=== PATIENT | female | born 1985 | race Two or more races ===

== ENCOUNTER 2017-08-30 01:08 | Emergency (ER) | payer OTHER ==
[2017-08-30] MEDS ORDERED: IPRATROPIUM/ALBUTEROL 3 ML NEB INH STA (01:37)
--- NOTE | 2017-08-30 02:53 | ED Physician Documentation ---
History of Present Illness - Stated complaint Stated Complaint: FACE,CHEST TINGLY - Chief complaint Chief Complaint: Resp - History obtained from History obtained from: Patient - History of Present Illness Timing: How many weeks ago Improved by: nothing Worsened by: coughing - Additonal information Additional information: c/o nausea, headache, cough x 1 week, bilateral ear pain, sore throat, Tmax 104 every day x 1 week Review of Systems Constitutional: reports: Fever, Chills, Myalgias, Fatigue, Sweats Ears: reports: Ear pain Throat: reports: Sore throat Cardiac: reports: Reviewed and negative Respiratory: reports: Dyspnea, Cough GI: reports: Nausea. 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 - Present Medications Home Medications: Ambulatory Orders Medication Instructions Recorded Confirmed Albuterol Sulf [Ventolin Hfa 1 - 2 puffs INH Q4H PRN 08/30/17 08/30/17 Inhaler] Albuterol Sulfate [Proventil Hfa 1 - 2 puffs INH Q4H PRN #1 inhaler 08/30/17 Inhaler] guaiFENesin/CODEINE [Robitussin AC] 5 - 10 ml PO Q6H PRN #100 udc 08/30/17 predniSONE [Deltasone] 40 mg PO DAILY 4 Days tablet 08/30/17 - Allergies Allergies/Adverse Reactions: Allergies Allergy/AdvReac Type Severity Reaction Status Date / Time nut - unspecified Allergy Nausea Verified 08/30/17 01:19 - Social History Does the pt smoke?: Yes Smoking Status: Current some day smoker Does the pt drink ETOH?: Yes ETOH Use: Wine, Beer, Liquor Does the pt have substance abuse?: No - Immunizations Immunizations are current?: Yes PD ED PE NORMAL - Vitals Vital signs reviewed: Yes - General General: Alert and oriented X 3, No acute distress, Well developed/nourished - Neck Neck: Supple, no meningeal sign - Cardiac Cardiac: RRR, No murmur, No gallop, No rub - Respiratory Respiratory: No respiratory distress - Abdomen Abdomen: Soft, Non tender - Back Back: No CVA TTP PD ED PE EXPANDED - Respiratory Respiratory: Wheezing (course, scattered, end-expiratory wheezing) Results - Vitals Vitals: Oxygen O2 Source Room air PD MEDICAL DECISION MAKING - ED course Complexity details: reviewed results, re-evaluated patient, considered differential, d/w patient Departure - Departure Disposition: 01 Home, Self Care Clinical Impression: Bronchitis with bronchospasm Condition: Good Instructions: ED Bronchitis Asthmatic Prescriptions: Albuterol Sulfate [Proventil Hfa Inhaler] 1 - 2 puffs INH Q4H PRN #1 inhaler PRN Reason: Shortness Of Air/Wheezing guaiFENesin/CODEINE [Robitussin AC] 5 - 10 ml PO Q6H PRN #100 udc PRN Reason: Cough predniSONE [Deltasone] 40 mg PO DAILY 4 Days tablet Discharge Date/Time: 08/30/17 03:25
[2017-08-30 03:13] VITALS: BP 123/85
[2017-08-30] MEDS ORDERED: guaiFENesin/CODEINE 5 ML UDC PO STA (03:14)
[2017-08-30] MEDS ORDERED: predniSONE 20 MG TABLET PO STA (03:14)
== END 2017-08-30 03:25 | disposition home or self-care (01) ==
LOC: ED 01:08
DX: J40 Bronchitis, not specified as acute or chronic (principal); F17.200 Nicotine dependence, unspecified, uncomplicated
CPT/HCPCS: 94640; 99283; A9270; J7512; J7620

== ENCOUNTER 2018-10-05 21:06 | Outpatient (CLI) | payer OTHER | END 2018-10-05 21:07 | disposition EMS.NT | LOC: EMS 21:06 | PROVIDERS: ATTEND Surgery | DX: R06.02 Shortness of breath (principal); R05 Cough ==

== ENCOUNTER 2020-03-04 18:26 | Outpatient (CLI) | payer OTHER | END 2020-03-04 18:27 | disposition critical access hospital (66) | LOC: EMS 18:26 | PROVIDERS: ATTEND Surgery | DX: R06.02 Shortness of breath (principal); R20.2 Paresthesia of skin; R42 Dizziness and giddiness; R53.1 Weakness; R19.7 Diarrhea, unspecified; R10.9 Unspecified abdominal pain | CPT/HCPCS: A0425; A0429 ==

== ENCOUNTER 2020-03-04 18:50 | Emergency (ER) | payer OTHER ==
--- NOTE | 2020-03-04 19:00 | ED Physician Documentation ---
PD HPI CHEST PAIN - Stated complaint Stated Complaint: SOA, FEELING CRUMMY - Chief complaint Chief Complaint: Cardiac - History obtained from History obtained from: Patient - Additional information Additional information: She was hospitalized at [facility] a few days ago for what sounds like a combination between panic attacks and may be PVCs. She was discharged on propranolol. Ever since then she has felt weak and dizzy and like her arms are cold and she is occasionally short of breath. She denies chest pain or pedal edema. No possibility of . Review of Systems Ten Systems: 10 systems reviewed and negative Constitutional: reports: Fatigue. 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 - Present Medications Home Medications: Ambulatory Orders Medication Instructions Recorded Confirmed Albuterol Sulf [Ventolin Hfa 1 - 2 puffs INH Q4H PRN 18 08/30/17 Inhaler] Albuterol Sulfate [Proventil Hfa 1 - 2 puffs INH Q4H PRN #1 inhaler 08/30/17 Inhaler] guaiFENesin/CODEINE [Robitussin AC] 5 - 10 ml PO Q6H PRN #100 udc 08/30/17 predniSONE [Deltasone] 40 mg PO DAILY 4 Days tablet 08/30/17 - Allergies Allergies/Adverse Reactions: Allergies Allergy/AdvReac Type Severity Reaction Status Date / Time nut - unspecified Allergy Nausea Verified 08/30/17 01:19 - Social History Does the pt smoke?: Yes Smoking Status: Current some day smoker Does the pt drink ETOH?: Yes Does the pt have substance abuse?: No - Immunizations Immunizations are current?: Yes PD ED PE NORMAL - Vitals Vital signs reviewed: Yes - General General: Alert and oriented X 3, No acute distress - HEENT HEENT: PERRL, EOMI - Neck Neck: Supple, no meningeal sign, No bony TTP - Cardiac Cardiac: RRR, No murmur - Respiratory Respiratory: No respiratory distress, Clear bilaterally - Abdomen Abdomen: Non tender - Derm Derm: No rash - Extremities Extremities: No edema, No calf tenderness / cord - Neuro Neuro: Alert and oriented X 3, Normal speech Results - Vitals Vitals: Vital Signs - 24 hr 03/04/20 03/04/20 03/04/20 18:56 20:24 20:25 Temperature 36.6 C Heart Rate 79 70 Heart Rate [ 74 Sitting] Heart Rate [ 80 Standing] Heart Rate [ 76 Supine] Respiratory 16 19 Rate Blood Pressure 147/99 H 133/78 H Blood Pressure 145/91 H [Sitting] Blood Pressure 133/78 H [Standing] Blood Pressure 152/92 H [Supine] O2 Saturation 100 100 Oxygen O2 Source Room air - EKG (time done) 1853 Rate: Rate (enter#) (77) Rhythm: NSR [place]: Normal Intervals: Normal [place] QRS: Normal Ischemia: Normal ST segments Computer interpretation: Agree with computer - Labs Labs: Laboratory Tests 03/04/20 03/04/20 03/04/20 19:27 19:27 19:27 WBC 8.6 RBC 4.29 Hgb 13.9 Hct 39.0 MCV 90.9 MCH 32.4 H MCHC 35.6 RDW 11.8 L Plt Count 300 MPV 9.6 Neut # (Auto) 5.4 Lymph # (Auto) 2.5 [place] # (Auto) 0.6 Eos # (Auto) 0.1 Baso # (Auto) 0.1 Absolute Nucleated RBC 0.00 Nucleated RBC % 0.0 Sodium 135 Potassium 3.5 Chloride 104 Carbon Dioxide 19 L Anion Gap 12.0 BUN 9 Creatinine 0.6 Estimated GFR (MDRD) 116 Glucose 107 H Calcium 9.3 Total Bilirubin 0.9 AST 51 H ALT 82 H Alkaline Phosphatase 56 Troponin I High Sens 3.3 B-Natriuretic Peptide Total Protein 7.8 Albumin 4.5 Globulin 3.3 Albumin/Globulin Ratio 1.4 Lipase 29 03/04/20 19:27 WBC RBC Hgb Hct MCV MCH MCHC RDW Plt Count MPV Neut # (Auto) Lymph # (Auto) [place] # (Auto) Eos # (Auto) Baso # (Auto) Absolute Nucleated RBC Nucleated RBC % Sodium Potassium Chloride Carbon Dioxide Anion Gap BUN Creatinine Estimated GFR (MDRD) Glucose Calcium Total Bilirubin AST ALT Alkaline Phosphatase Troponin I High Sens B-Natriuretic Peptide 29 Total Protein Albumin Globulin Albumin/Globulin Ratio Lipase PD MEDICAL DECISION MAKING - ED course ED course: Discharge summary from [facility] received and reviewed. He was admitted for lightheadedness. D-dimer was normal, troponin negative.And discharged she w as prescribed DuoNeb and propranolol. 34-year-old woman with nonspecific ill feelings after starting propranolol. Work-up was negative. Orthostatics negative. Advised to stop the propranolol pending follow-up. Departure - Departure Disposition: 01 Home, Self Care Clinical Impression: Malaise and fatigue Condition: Good Record reviewed to determine appropriate education?: Yes Instructions: ED Palpitations Comments: The cause of your symptoms is not completely clear but the timing would suggest that it is related to the propranolol. I would just stop it pending follow-up. Return for new or worsening symptoms. The remainder of your work-up was negative/unchanged from when you were at [facility].
[2020-03-04 19:32] LABS: BASOPHILS # (AUTO) 0.1 10^3/uL (0.0-0.1); BASOPHILS % (AUTO) 0.6 %; EOSINOPHILS # (AUTO) 0.1 10^3/uL (0.0-0.7); EOSINOPHILS % (AUTO) 0.8 %; HGB - HEMOGLOBIN 13.9 g/dL (12.0-16.0); LYMPHOCYTES # (AUTO) 2.5 10^3/uL (1.5-3.5); LYMPHOCYTES % (AUTO) 28.7 %; MEAN CORPUSCULAR HEMOGLOBIN 32.4 pg (27.0-31.0); MEAN CORPUSCULAR HGB CONC 35.6 g/dL (32.0-36.0); MEAN CORPUSCULAR VOLUME 90.9 fL (81.0-99.0); MEAN PLATELET VOLUME 9.6 fL (7.9-10.8); MONOCYTES # (AUTO) 0.6 10^3/uL (0.0-1.0); MONOCYTES % (AUTO) 6.4 %; NEUTROPHILS # (AUTO) 5.4 10^3/uL (1.5-6.6); PLT - PLATELET COUNT 300 10^3/uL (130-450); RED BLOOD COUNT 4.29 10^6/uL (4.20-5.40); RED CELL DISTRIBUTION WIDTH 11.8 % (12.0-15.0); WHITE BLOOD COUNT 8.6 x10^3/uL (4.8-10.8)
[2020-03-04 19:47] LABS: ALBUMIN 4.5 g/dL (3.2-5.5); ALBUMIN/GLOBULIN RATIO 1.4 (1.0-2.2); BILIRUBIN,TOTAL 0.9 mg/dL (0.2-1.0); CALCIUM 9.3 mg/dL (8.5-10.3); CREATININE 0.6 mg/dL (0.4-1.0); TOTAL PROTEIN 7.8 g/dL (6.7-8.2)
[2020-03-04] MEDS ORDERED: ONDANSETRON ODT 4 MG TABLET TL STA (19:51)
[2020-03-04 20:26] VITALS: BP 133/78
== END 2020-03-04 20:37 | disposition home or self-care (01) ==
LOC: EDUNIT# → ED 18:50
DX: R53.81 Other malaise (principal); R53.83 Other fatigue; R42 Dizziness and giddiness; R06.02 Shortness of breath; F17.200 Nicotine dependence, unspecified, uncomplicated
CPT/HCPCS: 36415; 80053; 83690; 83880; 84484; 85025; 93005; 99283; 99284; Q0162

== ENCOUNTER 2020-03-05 12:01 | Outpatient (CLI) | payer OTHER | END 2020-03-05 12:02 | disposition EMS.NT | LOC: EMS 12:01 | PROVIDERS: ATTEND Surgery | DX: R06.02 Shortness of breath (principal); R42 Dizziness and giddiness; R20.2 Paresthesia of skin ==

== ENCOUNTER 2020-03-05 12:59 | Emergency (ER) | payer OTHER ==
--- NOTE | 2020-03-05 13:05 | ED Physician Documentation ---
PD HPI CHEST PAIN - Stated complaint Stated Complaint: NAUSEA - History obtained from History obtained from: Patient - Additional information Additional information: 34-year-old woman who is been having problems over the last week with light headedness, nausea, and feeling odd heartbeats. She was admitted to [facility] for 2 days with what sounds like a completely negative work-up including d-dimer, labs, EKG, echocardiogram. Subsequently was seen here yesterday feeling lightheaded and out of it having started propranolol for the above symptoms. Work-up again was negative and she was advised to stop the propranolol. She did not take the propranolol last night or today. She is been nauseous today and has not had anything to eat. She feels very lightheaded. She feels like her hands are pale. She feels like her face and arms are numb. Her legs were numb but are not numb anymore. There is no chest pain but she feels like her heart rate was going fast. No shortness of breath. Review of Systems Constitutional: reports: Fatigue. denies: Fever, Chills Ears: denies: Ear pain Nose: denies: Rhinorrhea / runny nose Throat: denies: Sore throat Cardiac: reports: Palpitations. denies: Chest pain / pressure, Calf pain Respiratory: reports: Dyspnea. denies: Cough GI: reports: Nausea. 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 - Present Medications Home Medications: Ambulatory Orders Medication Instructions Recorded Confirmed Albuterol Sulf [Ventolin Hfa 1 - 2 puffs INH Q4H PRN 18 08/30/17 Inhaler] Albuterol Sulfate [Proventil Hfa 1 - 2 puffs INH Q4H PRN #1 inhaler 08/30/17 Inhaler] guaiFENesin/CODEINE [Robitussin AC] 5 - 10 ml PO Q6H PRN #100 udc 08/30/17 predniSONE [Deltasone] 40 mg PO DAILY 4 Days tablet 08/30/17 LORazepam [Ativan] 1 mg PO TID PRN #20 tablet 03/05/20 - Allergies Allergies/Adverse Reactions: Allergies Allergy/AdvReac Type Severity Reaction Status Date / Time nut - unspecified Allergy Nausea Verified 08/30/17 01:19 - Social History Does the pt smoke?: Yes Smoking Status: Current some day smoker Does the pt drink ETOH?: Yes Does the pt have substance abuse?: No - Immunizations Immunizations are current?: Yes PD ED PE NORMAL - Vitals Vital signs reviewed: Yes - General General: Alert and oriented X 3, No acute distress, Other (Notable carpal spasms with blood pressure cuff inflation.) - HEENT HEENT: PERRL, EOMI - Neck Neck: Supple, no meningeal sign, No bony TTP - Cardiac Cardiac: RRR, No murmur - Respiratory Respiratory: No respiratory distress, Clear bilaterally - Abdomen Abdomen: Normal bowel sounds, Soft, Non tender - Back Back: No CVA TTP, No spinal TTP - Derm Derm: Normal color, Warm and dry - Extremities Extremities: No edema, No calf tenderness / cord - Neuro Neuro: Alert and oriented X 3, No motor deficit, No sensory deficit, Normal speech Results - Vitals Vitals: Vital Signs - 24 hr 03/05/20 03/05/20 13:15 15:16 Temperature 36.9 C Heart Rate 87 82 Respiratory 16 16 Rate Blood Pressure 124/102 H 131/83 H O2 Saturation 100 100 Oxygen O2 Source Room air - EKG (time done) 1306 Rate: Rate (enter#) (82) Rhythm: NSR [place]: Normal Intervals: Normal [place] QRS: Normal Ischemia: Normal ST segments - Labs Labs: Laboratory Tests 03/05/20 03/05/20 03/05/20 13:29 13:29 13:29 WBC 9.1 RBC 4.53 Hgb 14.5 Hct 41.6 MCV 91.8 MCH 32.0 H MCHC 34.9 RDW 11.9 L Plt Count 327 MPV 9.7 Neut # (Auto) 6.3 Lymph # (Auto) 2.2 [place] # (Auto) 0.5 Eos # (Auto) 0.0 Baso # (Auto) 0.1 Absolute Nucleated RBC 0.00 Nucleated RBC % 0.0 VBG pH VBG pCO2 VBG pO2 VBG HCO3 VBG Total CO2 VBG O2 Saturation VBG Base Excess Ionized Calcium Sodium 134 L Potassium 3.4 L Chloride 102 Carbon Dioxide 19 L Anion Gap 13.0 BUN 9 Creatinine 0.7 Estimated GFR (MDRD) 97 Glucose 114 H Lactic Acid Calcium 9.8 Total Bilirubin 1.1 H AST 57 H ALT 86 H Alkaline Phosphatase 55 Troponin I High Sens < 2.3 L Total Protein 8.2 Albumin 4.6 Globulin 3.6 Albumin/Globulin Ratio 1.3 Lipase 30 TSH Urine Color Urine Clarity Urine pH Ur Specific [place] Urine Protein Urine Glucose (UA) Urine Ketones Urine Occult Blood Urine Nitrite Urine Bilirubin Urine Urobilinogen Ur Leukocyte Esterase Ur Microscopic Review Urine Culture Comments Urine HCG, Qual Urine Opiates Screen Ur Oxycodone Screen Urine Methadone Screen Ur Propoxyphene Screen Ur Barbiturates Screen Ur Tricyclics Screen Ur Phencyclidine Scrn Ur Amphetamine Screen U Methamphetamines Scrn U Benzodiazepines Scrn Urine Cocaine Screen U Cannabinoids Screen Ethyl Alcohol < 5.0 03/05/20 03/05/20 03/05/20 13:29 13:29 13:29 WBC RBC Hgb Hct MCV MCH MCHC RDW Plt Count MPV Neut # (Auto) Lymph # (Auto) [place] # (Auto) Eos # (Auto) Baso # (Auto) Absolute Nucleated RBC Nucleated RBC % VBG pH 7.572 H VBG pCO2 17.1 L VBG pO2 100.3 H VBG HCO3 15.4 L VBG Total CO2 15.9 L VBG O2 Saturation 98.0 H VBG Base Excess -3.5 L Ionized Calcium Sodium Potassium Chloride Carbon Dioxide Anion Gap BUN Creatinine Estimated GFR (MDRD) Glucose Lactic Acid 2.4 H Calcium Total Bilirubin AST ALT Alkaline Phosphatase Troponin I High Sens Total Protein Albumin Globulin Albumin/Globulin Ratio Lipase TSH 1.38 Urine Color Urine Clarity Urine pH Ur Specific [place] Urine Protein Urine Glucose (UA) Urine Ketones Urine Occult Blood Urine Nitrite Urine Bilirubin Urine Urobilinogen Ur Leukocyte Esterase Ur Microscopic Review Urine Culture Comments Urine HCG, Qual Urine Opiates Screen Ur Oxycodone Screen Urine Methadone Screen Ur Propoxyphene Screen Ur Barbiturates Screen Ur Tricyclics Screen Ur Phencyclidine Scrn Ur Amphetamine Screen U Methamphetamines Scrn U Benzodiazepines Scrn Urine Cocaine Screen U Cannabinoids Screen Ethyl Alcohol 03/05/20 03/05/20 13:29 13:29 WBC RBC Hgb Hct MCV MCH MCHC RDW Plt Count MPV Neut # (Auto) Lymph # (Auto) [place] # (Auto) Eos # (Auto) Baso # (Auto) Absolute Nucleated RBC Nucleated RBC % VBG pH 7.572 H VBG pCO2 VBG pO2 VBG HCO3 VBG Total CO2 VBG O2 Saturation VBG Base Excess Ionized Calcium 1.13 L Sodium Potassium Chloride Carbon Dioxide Anion Gap BUN Creatinine Estimated GFR (MDRD) Glucose Lactic Acid Calcium Total Bilirubin AST ALT Alkaline Phosphatase Troponin I High Sens Total Protein Albumin Globulin Albumin/Globulin Ratio Lipase TSH Urine Color YELLOW Urine Clarity CLEAR Urine pH 8.0 H Ur Specific [place] 1.015 Urine Protein NEGATIVE Urine Glucose (UA) NEGATIVE Urine Ketones 15 H Urine Occult Blood NEGATIVE Urine Nitrite NEGATIVE Urine Bilirubin NEGATIVE Urine Urobilinogen 0.2 (NORMAL) Ur Leukocyte Esterase NEGATIVE Ur Microscopic Review NOT INDICATED Urine Culture Comments NOT INDICATED Urine HCG, Qual NEGATIVE Urine Opiates Screen NEGATIVE Ur Oxycodone Screen NEGATIVE Urine Methadone Screen NEGATIVE Ur Propoxyphene Screen NEGATIVE Ur Barbiturates Screen NEGATIVE Ur Tricyclics Screen NEGATIVE Ur Phencyclidine Scrn NEGATIVE Ur Amphetamine Screen NEGATIVE U Methamphetamines Scrn NEGATIVE U Benzodiazepines Scrn NEGATIVE Urine Cocaine Screen NEGATIVE U Cannabinoids Screen NEGATIVE Ethyl Alcohol PD MEDICAL DECISION MAKING - ED course Complexity details: reviewed old records, reviewed results, considered differential ED course: 34-year-old woman presents with lightheadedness, paresthesias and is noted to have carpal spasms with inflation of the blood pressure cuff. Previous work-ups thus far have been frustratingly negative. The carpal spasms would suggest either a alkalosis or hypocalcemia and therefore venous gas and ionized calcium were done. Ionized calcium was slightly low but she has a significant respiratory alkalosis consistent with a hyperventilation syndrome and was feeling better after IV Ativan. We discussed alternative causes of a respiratory alkalosis, but between the work-up from here in [facility] and the fact that she has not been taking any aspirin-containing substances I think all have been safely ruled out. Departure - Departure Disposition: 01 Home, Self Care Clinical Impression: Respiratory alkalosis, Hypocalcemia Condition: Good Record reviewed to determine appropriate education?: Yes Instructions: ED Hyperventilation Syndrome Prescriptions: LORazepam [Ativan] 1 mg PO TID PRN #20 tablet PRN Reason: Anxiety Comments: Prescriptions e-rescribed to [facility] in [place] [facility] today demonstrate what is called a respiratory alkalosis. There are limited causes for this and between here and [facility] all been ruled out except for anxiety and hyperventilation. The lorazepam should help with that. Follow- up with your doctor tomorrow as scheduled and discuss a more long-term treatment for this such as an SSRI. Return if worse.
[2020-03-05] MEDS ORDERED: SODIUM CHLORIDE 0.9% 1,000 ML IV STA (13:39)
[2020-03-05] MEDS ORDERED: LORazepam 2 MG/ML VIAL IVP STA (13:39)
[2020-03-05 13:40] LABS: MUDS CUTOFF CONCENTRATIONS CUTOFF CONC BELOW:; VBG PCO2 17.1 mmHg (41-51); VBG PH 7.572 (7.31-7.41); VBG PO2 100.3 mmHg (25-47); VBG TOTAL CO2 15.9 mmol/L (24-29)
[2020-03-05 13:41] LABS: VBG BASE EXCESS -3.5 mmol/L (-2 - +2); VBG PH 7.572 (7.31-7.41)
[2020-03-05 13:47] LABS: BASOPHILS # (AUTO) 0.1 10^3/uL (0.0-0.1); BASOPHILS % (AUTO) 0.6 %; EOSINOPHILS % (AUTO) 0.4 %; HGB - HEMOGLOBIN 14.5 g/dL (12.0-16.0); LYMPHOCYTES # (AUTO) 2.2 10^3/uL (1.5-3.5); LYMPHOCYTES % (AUTO) 24.1 %; MEAN CORPUSCULAR HGB CONC 34.9 g/dL (32.0-36.0); MEAN CORPUSCULAR VOLUME 91.8 fL (81.0-99.0); MEAN PLATELET VOLUME 9.7 fL (7.9-10.8); MONOCYTES # (AUTO) 0.5 10^3/uL (0.0-1.0); MONOCYTES % (AUTO) 5.5 %; NEUTROPHILS # (AUTO) 6.3 10^3/uL (1.5-6.6); NEUTROPHILS % (AUTO) 69.1 %; PLT - PLATELET COUNT 327 10^3/uL (130-450); RED BLOOD COUNT 4.53 10^6/uL (4.20-5.40); RED CELL DISTRIBUTION WIDTH 11.9 % (12.0-15.0); WHITE BLOOD COUNT 9.1 x10^3/uL (4.8-10.8)
[2020-03-05 13:50] LABS: BILIRUBIN,URINE NEGATIVE (NEGATIVE); CLARITY,URINE CLEAR (CLEAR); GLUCOSE, URINE (UA) NEGATIVE (NEGATIVE); HCG UR QUAL NEGATIVE; KETONES,URINE (UA) 15 mg/dL (NEGATIVE); LEUKOCYTE ESTERASE, URINE NEGATIVE (NEGATIVE); NITRITE,URINE NEGATIVE (NEGATIVE); OCCULT BLOOD,URINE NEGATIVE (NEGATIVE); PROTEIN,URINE NEGATIVE (NEGATIVE); UROBILINOGEN,URINE 0.2 (NORMAL) E.U./dL (NORMAL)
[2020-03-05 13:59] LABS: AMPHETAMINE SCREEN,URINE NEGATIVE (NEGATIVE); BENZODIAZEPINES SCREEN, URINE NEGATIVE (NEGATIVE); COCAINE SCREEN URINE NEGATIVE (NEGATIVE); METHADONE SCREEN, URINE NEGATIVE (NEGATIVE); METHAMPHETAMINES SCREEN, URINE NEGATIVE (NEGATIVE); OPIATE SCREEN, URINE NEGATIVE (NEGATIVE); OXYCODONE SCREEN, URINE NEGATIVE (NEGATIVE); PROPOXYPHENE SCREEN, URINE NEGATIVE (NEGATIVE); TRICYCLIC ANTIDEPRESSANT,URINE NEGATIVE (NEGATIVE)
[2020-03-05 14:16] LABS: ALBUMIN 4.6 g/dL (3.2-5.5); ALBUMIN/GLOBULIN RATIO 1.3 (1.0-2.2); ALKALINE PHOSPHATASE 55 IU/L (42-121); ALT ALANINE AMINOTRANSFERASE 86 IU/L (10-60); AST ASPARTATE AMINOTRANSFERASE 57 IU/L (10-42); BILIRUBIN,TOTAL 1.1 mg/dL (0.2-1.0); BUN - BLOOD UREA NITROGEN 9 mg/dL (6-20); CALCIUM 9.8 mg/dL (8.5-10.3); CARBON DIOXIDE - CO2 19 mmol/L (21-32); CHLORIDE 102 mmol/L (101-111); CREATININE 0.7 mg/dL (0.4-1.0); GLUCOSE 114 mg/dL (70-100); LIPASE 30 U/L (22-51); SODIUM 134 mmol/L (135-145); TOTAL PROTEIN 8.2 g/dL (6.7-8.2)
[2020-03-05] MEDS ORDERED: CALCIUM GLUCONATE 1,000 MG in SODIUM CHLORIDE 0.9% 50 ML IV STA (14:30)
[2020-03-05 15:35] VITALS: BP 131/83
== END 2020-03-05 15:55 | disposition home or self-care (01) ==
LOC: EDUNIT# → ED 12:59
DX: E87.3 Alkalosis (principal); E83.51 Hypocalcemia; F17.200 Nicotine dependence, unspecified, uncomplicated
CPT/HCPCS: 36415; 80306; 80320; 81003; 81025; 82330; 82803; 83605; 83690; 84484; 93005; 96361; 96365; 96375; 99284; J2060; J7040; 80053; 81001; 84443; 85025; 87086

== ENCOUNTER 2020-04-29 08:46 | Emergency (ER) | payer OTHER ==
--- NOTE | 2020-04-29 08:48 | ED Physician Documentation ---
PD HPI NVD - Stated complaint Stated Complaint: N/V - History obtained from History obtained from: Patient - History of Present Illness Timing - onset: How many days ago (She has had about 3 months of considerable upper abdominal discomfort and consistent nausea and vomiting with approximately 40 pound weight loss. She has seen gastroenterology and has had multiple test. She is here today because of increased nausea and vomiting over the last 2 to 3 days) Timing - duration: Days (2-3 days worse symptoms) Timing - details: Still present, Waxing and waning Associated symptoms: Abdominal pain (upper abd cramping pains.), Loss of appetite, Weight loss (40 lbs over the past 3 months.) Contributing factors: No: Sick contact, Bad food, Travel, Recent antibiotics Improved by: No: Vomiting Worsened by: Eating. No: Position Recently seen: Clinic (Seen by gastroenterology this past week and changed from pantoprazole to S omeprazole to see if better effect. Also had stool studies ordered and the patient brought the sample in 2 days ago.) Review of Systems Constitutional: reports: Myalgias, Fatigue, Weight Loss. denies: Fever, Chills Nose: denies: Rhinorrhea / runny nose, Congestion Throat: denies: Sore throat Respiratory: denies: Cough GI: reports: Abdominal Pain, Nausea, Vomiting. 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 - Present Medications Home Medications: Ambulatory Orders Medication Instructions Recorded Confirmed Albuterol Sulf [Ventolin Hfa 1 - 2 puffs INH Q4H PRN 08/30/17 08/30/17 Inhaler] Albuterol Sulfate [Proventil Hfa 1 - 2 puffs INH Q4H PRN #1 inhaler 08/30/17 Inhaler] guaiFENesin/CODEINE [Robitussin AC] 5 - 10 ml PO Q6H PRN #100 udc 08/30/17 predniSONE [Deltasone] 40 mg PO DAILY 4 Days tablet 08/30/17 LORazepam [Ativan] 1 mg PO TID PRN #20 tablet 03/05/20 Promethazine [Phenergan] 25 mg PO Q6H PRN #20 tab 04/29/20 - Allergies Allergies/Adverse Reactions: Allergies Allergy/AdvReac Type Severity Reaction Status Date / Time nut - unspecified Allergy Nausea Verified 08/30/17 01:19 lorazepam AdvReac Emesis Verified 04/29/20 09:04 metoclopramide [From Reglan] AdvReac Hallucinati Verified 04/29/20 09:04 ons - Social History Does the pt smoke?: Yes Smoking Status: Current some day smoker Does the pt drink ETOH?: Yes Does the pt have substance abuse?: No - Immunizations Immunizations are current?: Yes PD ED PE NORMAL - Vitals Vital signs reviewed: Yes - General General: Alert and oriented X 3, No acute distress, Well developed/nourished - HEENT HEENT: Pharynx benign - Neck Neck: Supple, no meningeal sign, No adenopathy - Cardiac Cardiac: RRR, No murmur - Respiratory Respiratory: Clear bilaterally - Abdomen Abdomen: Normal bowel sounds, Soft, Non distended, No organomegaly, Other (Mild tenderness without any guarding nor rebound in the epigastric area.) - Female Female : Deferred - Rectal Rectal: Deferred - Back Back: No CVA TTP - Derm Derm: Normal color, Warm and dry - Extremities Extremities: Normal ROM s pain, No edema - Neuro Neuro: Alert and oriented X 3, No motor deficit, Normal speech Results - Vitals Vitals: Vital Signs - 24 hr 04/29/20 04/29/20 04/29/20 08:49 11:02 13:12 Temperature 36.9 C Heart Rate 85 75 83 Respiratory 20 11 L 11 L Rate Blood Pressure 139/86 H 128/81 H 139/79 H O2 Saturation 100 100 100 Oxygen O2 Source Room air - Labs Labs: Laboratory Tests 04/29/20 04/29/20 04/29/20 09:34 09:34 10:05 WBC 6.5 RBC 4.20 Hgb 13.7 Hct 38.5 MCV 91.7 MCH 32.6 H MCHC 35.6 RDW 12.1 Plt Count 248 MPV 10.3 Neut # (Auto) 4.3 Lymph # (Auto) 1.6 [place] # (Auto) 0.4 Eos # (Auto) 0.0 Baso # (Auto) 0.0 Absolute Nucleated RBC 0.00 Nucleated RBC % 0.0 Sodium Potassium Chloride Carbon Dioxide Anion Gap BUN Creatinine Estimated GFR (MDRD) Glucose Calcium Magnesium Total Bilirubin AST ALT Alkaline Phosphatase Total Protein Albumin Globulin Albumin/Globulin Ratio Lipase Urine Color DARK YELLOW Urine Clarity CLEAR Urine pH 6.0 Ur Specific [place] 1.025 1.025 Urine Protein NEGATIVE Urine Glucose (UA) NEGATIVE Urine Ketones 15 H Urine Occult Blood TRACE-INTA Urine Nitrite NEGATIVE Urine Bilirubin NEGATIVE Urine Urobilinogen 0.2 (NORMAL) Ur Leukocyte Esterase TRACE H Urine RBC 0-5 Urine WBC 0-3 Ur Squamous Epith Cells FEW Squamous Urine Bacteria Few Ur Microscopic Review INDICATED Urine Culture Comments INDICATED Urine HCG, Qual NEGATIVE 04/29/20 10:05 WBC RBC Hgb Hct MCV MCH MCHC RDW Plt Count MPV Neut # (Auto) Lymph # (Auto) [place] # (Auto) Eos # (Auto) Baso # (Auto) Absolute Nucleated RBC Nucleated RBC % Sodium 137 Potassium 3.6 Chloride 105 Carbon Dioxide 21 Anion Gap 11.0 BUN 7 Creatinine 0.7 Estimated GFR (MDRD) 96 Glucose 111 H Calcium 9.6 Magnesium 2.0 Total Bilirubin 1.0 AST 27 ALT 52 Alkaline Phosphatase 50 Total Protein 7.7 Albumin 4.7 Globulin 3.0 Albumin/Globulin Ratio 1.6 Lipase 26 Urine Color Urine Clarity Urine pH Ur Specific [place] Urine Protein Urine Glucose (UA) Urine Ketones Urine Occult Blood Urine Nitrite Urine Bilirubin Urine Urobilinogen Ur Leukocyte Esterase Urine RBC Urine WBC Ur Squamous Epith Cells Urine Bacteria Ur Microscopic Review Urine Culture Comments Urine HCG, Qual PD MEDICAL DECISION MAKING - ED course Complexity details: reviewed old records, reviewed results, re-evaluated patient (Proved with fluids and promethazine here.), considered differential (She has had considerable work-up with endoscopies CTs ultrasounds lab tests. She is having increased nausea and vomiting since changing from pantoprazole to S omeprazole at the direction of her GI. We can give IV fluids and check electrolytes here for acute nausea and dehydration.), d/w patient ED course: Given her extensive prior work-up and GI specialist evaluation, my main focus on the visit today is to decrease her nausea and ensure hydration and check electrolytes. The patient is good with this plan for the visit today. She is to see her set staff fitter next week, I believe. Departure - Departure Disposition: 01 Home, Self Care Clinical Impression: Dehydration Nausea and vomiting Qualifiers: Vomiting type: unspecified Vomiting Intractability: intractable Qualified Code(s): R11.2 - Nausea with vomiting, unspecified Condition: Stable Instructions: ED Nausea Vomiting Follow-Up: REJI SNEED ARNP [Primary Care Provider] - Prescriptions: Promethazine [Phenergan] 25 mg PO Q6H PRN #20 tab PRN Reason: Nausea / Vomiting Comments: Continue with your current medications. Use the pantoprazole rather than the esomeprazole. You can use it twice daily for the next week or so. Use promethazine if needed for nausea and vomiting. Follow-up with your set staff fitter and primary care this coming week. Discharge Date/Time: 04/29/20 14:47
[2020-04-29] MEDS ORDERED: LACTATED RINGERS 1,000 ML IV STA ×2 (09:31→10:17)
[2020-04-29] MEDS ORDERED: PANTOPRAZOLE 40 MG VIAL IVP STA (09:32)
[2020-04-29] MEDS ORDERED: ONDANSETRON 4 MG/2 ML VIAL IVP STA (09:45)
[2020-04-29 09:58] LABS: BILIRUBIN,URINE NEGATIVE (NEGATIVE); GLUCOSE, URINE (UA) NEGATIVE (NEGATIVE); KETONES,URINE (UA) 15 mg/dL (NEGATIVE); LEUKOCYTE ESTERASE, URINE TRACE (NEGATIVE); NITRITE,URINE NEGATIVE (NEGATIVE); OCCULT BLOOD,URINE TRACE-INTA (NEGATIVE); PROTEIN,URINE NEGATIVE (NEGATIVE); UROBILINOGEN,URINE 0.2 (NORMAL) E.U./dL (NORMAL)
[2020-04-29 10:01] LABS: CLARITY,URINE CLEAR (CLEAR); HCG UR QUAL NEGATIVE
[2020-04-29] MEDS ORDERED: diphenhydrAMINE INJ 50 MG/ML VIAL IVP STA (10:11)
[2020-04-29 10:14] LABS: BACTERIA,URINE Few /HPF (None Seen); RBC,URINE 0-5 /HPF (0-5); SQUAMOUS EPITHELIAL CELL,UR FEW Squamous (<= Few)
[2020-04-29 10:22] LABS: BASOPHILS % (AUTO) 0.5 %; EOSINOPHILS % (AUTO) 0.3 %; HGB - HEMOGLOBIN 13.7 g/dL (12.0-16.0); LYMPHOCYTES # (AUTO) 1.6 10^3/uL (1.5-3.5); LYMPHOCYTES % (AUTO) 24.8 %; MEAN CORPUSCULAR HEMOGLOBIN 32.6 pg (27.0-31.0); MEAN CORPUSCULAR HGB CONC 35.6 g/dL (32.0-36.0); MEAN CORPUSCULAR VOLUME 91.7 fL (81.0-99.0); MEAN PLATELET VOLUME 10.3 fL (7.9-10.8); MONOCYTES # (AUTO) 0.4 10^3/uL (0.0-1.0); MONOCYTES % (AUTO) 6.8 %; NEUTROPHILS # (AUTO) 4.3 10^3/uL (1.5-6.6); NEUTROPHILS % (AUTO) 67.3 %; PLT - PLATELET COUNT 248 10^3/uL (130-450); RED CELL DISTRIBUTION WIDTH 12.1 % (12.0-15.0); WHITE BLOOD COUNT 6.5 x10^3/uL (4.8-10.8)
[2020-04-29 10:35] LABS: ALBUMIN 4.7 g/dL (3.2-5.5); ALBUMIN/GLOBULIN RATIO 1.6 (1.0-2.2); CALCIUM 9.6 mg/dL (8.5-10.3); CREATININE 0.7 mg/dL (0.4-1.0); TOTAL PROTEIN 7.7 g/dL (6.7-8.2)
[2020-04-29 13:13] VITALS: BP 139/79
[2020-04-29] MEDS ORDERED: PROMETHAZINE INJ 12.5 MG in SODIUM CHLORIDE 0.9% 50 ML IV STA (13:38)
[2020-04-29] MEDS ORDERED: PROMETHAZINE 25 MG/1 ML VIAL ONE (14:14)
== END 2020-04-29 14:47 | disposition home or self-care (01) ==
LOC: ED 08:46
DX: E86.0 Dehydration (principal); R11.2 Nausea with vomiting, unspecified; F17.200 Nicotine dependence, unspecified, uncomplicated
CPT/HCPCS: 36415; 80053; 81001; 81025; 82652; 83690; 83735; 85025; 87086; 93005; 96374; 96375; 99284; J1200; J7040; J7120; 81003